=== PATIENT | female | born 1955 ===

== ENCOUNTER 2022-10-23 07:01 | Day surgery (SDC) | payer OTHER | END 2022-10-23 14:00 | disposition home or self-care (01) | LOC: AMB-ENDOS 07:01 | PROVIDERS: ATTEND Colon & Rectal Surgery | DX: D12.0 Benign neoplasm of cecum (principal); Z91.018 Allergy to other foods; K64.8 Other hemorrhoids; Z20.822 Contact with and (suspected) exposure to COVID-19 ==

== ENCOUNTER 2023-05-28 06:50 | Day surgery (SDC) | payer OTHER | END 2023-05-28 11:10 | disposition home or self-care (01) | LOC: AMB-ENDOS 06:50 | PROVIDERS: ATTEND Colon & Rectal Surgery | DX: K57.30 Diverticulosis of large intestine without perforation or abscess without bleeding (principal); Z86.010 Personal history of colon polyps; K64.8 Other hemorrhoids; Z20.822 Contact with and (suspected) exposure to COVID-19 ==